=== PATIENT | male | born 1945 | race African-American/Black ===

== ENCOUNTER 2022-01-24 08:49 | Inpatient (IN) ==
[2022-01-24 09:28] LABS: Immature Granulocytes % 0.4 %; Immature Granulocytes Absolute 0.04 #; Lymphocytes # 0.9 10*3/uL (1.4-4.0); Lymphocytes % 8.2 % (21.2-54.2); Mean Corpuscular HGB Conc 33.3 GM/DL (32-36); Mean Corpuscular Volume 86.4 FL (87-102); Mean Platelet Volume 12.7 FL (9.6-12.0); Monocytes # 1.1 10*3/uL (0.11-0.8); Monocytes % 9.8 % (1.7-12.7); Neutrophils % 81.6 % (38.7-73.9); Platelet Count 175 T/CUMM (130-400); Red Blood Count 4.86 MC/CUMM (3.8-5.5); Red Cell Distribution Width 15.9 % (9.3-17.3); White Blood Count 11.2 T/CUMM (4-12)
[2022-01-24 09:43] LABS: Albumin 3.5 G/DL (3.4-5.0); Bilirubin,Total 1.8 MG/DL (0.20-1.00); Calcium 9.2 MG/DL (8.5-10.1); Potassium 4.1 MMOL/L (3.5-5.1); Total Protein 7.1 G/DL (6.4-8.2)
[2022-01-24] MEDS ORDERED: FUROSEMIDE 40 MG/4 ML VIAL IV STA (10:06)
[2022-01-24] MEDS ORDERED: ONDANSETRON 4 MG/2 ML VIAL IV STA (10:39)
[2022-01-24] MEDS ORDERED: MORPHINE 2 MG/1 ML SYRINGE IV STA (10:39)
[2022-01-24] MEDS ORDERED: MORPHINE 2 MG/1 ML SYRINGE ONE (10:40)
[2022-01-24] MEDS ORDERED: ASPIRIN 325 MG TABLET PO STA (13:33)
[2022-01-24] MEDS ORDERED: MORPHINE 2 MG/1 ML SYRINGE IV PRN (14:08)
[2022-01-24] MEDS ORDERED: ACETAMINOPHEN 325 MG TABLET PO PRN (14:08)
[2022-01-24] MEDS ORDERED: ONDANSETRON 4 MG/2 ML VIAL IV PRN (14:08)
[2022-01-24] MEDS ORDERED: cefTRIAXone 1,000 MG in SODIUM CHLORIDE 0.9% 100 ML IV STA (14:12)
[2022-01-24] MEDS: ENOXAPARIN 40 MG/0.4 ML SYRINGE SUBCUT SCH (14:59)
[2022-01-24 15:29] LABS: Amorphous Crystals,Urine Occasional /HPF (Few); Bilirubin,Urine Negative (Negative); Blood, Urine Large mg/dL (Negative); Glucose,Urine (UA) Negative (Negative); Ketones,Urine Negative (Negative); Mucus,Urine Occasional /LPF (Occasional); Nitrite,Urine Negative (Negative); Protein,Urine Negative (Negative); RBC,Urine 8 /HPF (0-4); Urine Appearance CLEAR (Clear); Urine Color Straw (Yellow); Urine Specific Gravity 1.005 (1.001-1.035); Urine Urobilinogen < 2.0 eU/dL (<2.0)
[2022-01-24] MEDS ORDERED: METOPROLOL TARTRATE 25 MG TABLET PO SCH (21:00)
[2022-01-24] MEDS: FUROSEMIDE 40 MG/4 ML VIAL IV SCH (22:56)
[2022-01-24] MEDS: carvediloL 3.125 MG TABLET PO SCH (22:59)
[2022-01-24] MEDS: TAMSULOSIN 0.4 MG CAPSULE PO SCH (22:59)
[2022-01-25 05:19] LABS: Hematocrit 36.6 VOL% (42.0-52.0); Hemoglobin 11.7 GM/DL (14.0-18.0); Immature Granulocytes % 0.6 %; Immature Granulocytes Absolute 0.04 #; Lymphocytes # 0.7 10*3/uL (1.4-4.0); Lymphocytes % 9.5 % (21.2-54.2); Mean Corpuscular Volume 89.3 FL (87-102); Mean Platelet Volume 12.7 FL (9.6-12.0); Monocytes # 0.7 10*3/uL (0.11-0.8); Monocytes % 10.5 % (1.7-12.7); Neutrophils % 79.4 % (38.7-73.9); Platelet Count 149 T/CUMM (130-400); Red Cell Distribution Width 15.9 % (9.3-17.3)
[2022-01-25 05:36] LABS: Albumin 2.3 G/DL (3.4-5.0); Bilirubin,Total 0.8 MG/DL (0.20-1.00); Calcium 8.2 MG/DL (8.5-10.1); Osmolality,Calculated 297.6 MOS/KG (273-304); Risk Ratio 3.5; Total Protein 5.2 G/DL (6.4-8.2); VLDL Cholesterol 11.8 MG/DL
[2022-01-25] MEDS ORDERED: ASPIRIN EC 325 MG TABLET PO SCH (09:00)
[2022-01-25] MEDS ORDERED: INFLUENZA VIRUS VACCINE 0.5 ML SYRINGE IM ONE (09:00)
[2022-01-25] MEDS ORDERED: DAPAGLIFLOZIN 5 MG TABLET PO SCH (09:00)
[2022-01-25] MEDS: ASPIRIN EC 81 MG TABLET PO SCH (09:34)
[2022-01-25] MEDS: carvediloL 3.125 MG TABLET PO SCH ×2 (09:34→22:26)
[2022-01-25] MEDS: FUROSEMIDE 40 MG/4 ML VIAL IV SCH ×2 (09:34→16:35)
[2022-01-25] MEDS: PANTOPRAZOLE 40 MG TABLET PO SCH (09:34)
[2022-01-25] MEDS ORDERED: cefTRIAXone 1,000 MG in SODIUM CHLORIDE 0.9% 100 ML IV SCH (14:00)
[2022-01-25] MEDS: ENOXAPARIN 40 MG/0.4 ML SYRINGE SUBCUT SCH (14:08)
[2022-01-25] MEDS ORDERED: BISACODYL 5 MG TABLET PO ONE (16:52)
[2022-01-25] MEDS: TAMSULOSIN 0.4 MG CAPSULE PO SCH (22:26)
[2022-01-26 06:16] LABS: Eosinophils % 0.4 % (0.00-10.9); Hematocrit 33.9 VOL% (42.0-52.0); Hemoglobin 11.1 GM/DL (14.0-18.0); Immature Granulocytes % 0.2 %; Immature Granulocytes Absolute 0.01 #; Lymphocytes # 1.1 10*3/uL (1.4-4.0); Mean Corpuscular HGB Conc 32.7 GM/DL (32-36); Mean Corpuscular Volume 87.8 FL (87-102); Mean Platelet Volume 12.7 FL (9.6-12.0); Monocytes # 0.6 10*3/uL (0.11-0.8); Monocytes % 10.3 % (1.7-12.7); Neutrophils % 70.1 % (38.7-73.9); Platelet Count 150 T/CUMM (130-400); Red Blood Count 3.86 MC/CUMM (3.8-5.5); Red Cell Distribution Width 15.9 % (9.3-17.3); White Blood Count 5.6 T/CUMM (4-12)
[2022-01-26 06:28] LABS: Osmolality,Calculated 289.1 MOS/KG (273-304); Potassium 3.4 MMOL/L (3.5-5.1)
[2022-01-26] MEDS ORDERED: POTASSIUM CHLORIDE 20 MEQ TABLET PO ONE (07:05)
[2022-01-26] MEDS: FUROSEMIDE 40 MG/4 ML VIAL IV SCH ×2 (08:49→16:09)
[2022-01-26] MEDS: DAPAGLIFLOZIN 10 MG TABLET PO SCH (08:49)
[2022-01-26] MEDS: carvediloL 3.125 MG TABLET PO SCH ×2 (08:49→21:38)
[2022-01-26] MEDS: PANTOPRAZOLE 40 MG TABLET PO SCH (08:49)
[2022-01-26] MEDS: ASPIRIN EC 81 MG TABLET PO SCH (08:50)
[2022-01-26] MEDS: POTASSIUM CHLORIDE 20 MEQ TABLET PO SCH (09:01)
[2022-01-26] MEDS ORDERED: MAGNESIUM SULF RIDER 2 GM/50 ML PREMIX IV PRN ×2 (09:52→10:33)
[2022-01-26] MEDS ORDERED: POTASSIUM CHLORIDE RIDER 10 MEQ/100 ML PREMIX IV PRN ×2 (09:52→10:33)
[2022-01-26] MEDS: ENOXAPARIN 40 MG/0.4 ML SYRINGE SUBCUT SCH (14:26)
[2022-01-26] MEDS: DOCUSATE SODIUM 100 MG CAPSULE PO SCH (21:38)
[2022-01-26] MEDS: ROSUVASTATIN 20 MG TABLET PO SCH (21:38)
[2022-01-26] MEDS: TAMSULOSIN 0.4 MG CAPSULE PO SCH (21:38)
[2022-01-27 04:27] LABS: Basophils % 0.2 % (0.0-0.8); Eosinophils % 0.6 % (0.00-10.9); Hemoglobin 12.4 GM/DL (14.0-18.0); Immature Granulocytes % 0.2 %; Immature Granulocytes Absolute 0.01 #; Lymphocytes # 1.3 10*3/uL (1.4-4.0); Lymphocytes % 23.8 % (21.2-54.2); Mean Corpuscular HGB Conc 32.6 GM/DL (32-36); Mean Corpuscular Volume 87.2 FL (87-102); Mean Platelet Volume 12.2 FL (9.6-12.0); Monocytes # 0.6 10*3/uL (0.11-0.8); Monocytes % 11.1 % (1.7-12.7); Neutrophils % 64.1 % (38.7-73.9); Platelet Count 167 T/CUMM (130-400); Red Blood Count 4.36 MC/CUMM (3.8-5.5); Red Cell Distribution Width 15.8 % (9.3-17.3); White Blood Count 5.4 T/CUMM (4-12)
[2022-01-27 04:48] LABS: Calcium 8.3 MG/DL (8.5-10.1); Osmolality,Calculated 284.5 MOS/KG (273-304); Potassium 3.4 MMOL/L (3.5-5.1)
[2022-01-27] MEDS: SODIUM CHLORIDE 0.9% 1,000 ML IV SCH ×3 (06:18→23:56)
[2022-01-27] MEDS ORDERED: DIAZEPAM 5 MG TABLET PO ONE ×2 (08:00→13:00)
[2022-01-27] MEDS ORDERED: diphenhydrAMINE CAP 50 MG CAPSULE PO ONE ×2 (08:00→13:00)
[2022-01-27] MEDS: DOCUSATE SODIUM 100 MG CAPSULE PO SCH ×2 (09:18→20:49)
[2022-01-27] MEDS: ASPIRIN EC 81 MG TABLET PO SCH (09:18)
[2022-01-27] MEDS: carvediloL 3.125 MG TABLET PO SCH ×2 (09:18→20:49)
[2022-01-27] MEDS: PANTOPRAZOLE 40 MG TABLET PO SCH (09:18)
[2022-01-27] MEDS: DAPAGLIFLOZIN 10 MG TABLET PO SCH (09:18)
[2022-01-27] MEDS: POTASSIUM CHLORIDE 20 MEQ TABLET PO SCH (09:19)
[2022-01-27] MEDS: FUROSEMIDE 40 MG/4 ML VIAL IV SCH ×2 (09:22→16:39)
[2022-01-27] MEDS ORDERED: HEPARIN/NACL 0.9% 2 UNITS/ML 2,000 UNIT/1,000 ML BAG IV ONE (12:00)
[2022-01-27] MEDS ORDERED: fentaNYL 100 MCG/2 ML VIAL ONE (12:08)
[2022-01-27] MEDS ORDERED: MIDAZOLAM 2 MG/2 ML VIAL ONE (12:08)
[2022-01-27] MEDS: POLYETHYLENE GLYCOL POWDER 17 GM PACK PO SCH (14:15)
[2022-01-27] MEDS: ROSUVASTATIN 20 MG TABLET PO SCH (20:49)
[2022-01-27] MEDS: TAMSULOSIN 0.4 MG CAPSULE PO SCH (20:49)
[2022-01-28 04:50] LABS: Basophils % 0.3 % (0.0-0.8); Eosinophils # 0.1 10*3/uL (0.0-0.87); Eosinophils % 0.8 % (0.00-10.9); Hematocrit 41.3 VOL% (42.0-52.0); Hemoglobin 13.4 GM/DL (14.0-18.0); Immature Granulocytes % 0.3 %; Immature Granulocytes Absolute 0.02 #; Lymphocytes # 1.1 10*3/uL (1.4-4.0); Lymphocytes % 18.1 % (21.2-54.2); Mean Corpuscular HGB Conc 32.4 GM/DL (32-36); Monocytes # 0.7 10*3/uL (0.11-0.8); Monocytes % 11.3 % (1.7-12.7); Neutrophils % 69.2 % (38.7-73.9); Platelet Count 173 T/CUMM (130-400); Red Blood Count 4.64 MC/CUMM (3.8-5.5)
[2022-01-28 05:09] LABS: Calcium 8.4 MG/DL (8.5-10.1)
[2022-01-28] MEDS: carvediloL 3.125 MG TABLET PO SCH (08:40)
[2022-01-28] MEDS: ASPIRIN EC 81 MG TABLET PO SCH (08:40)
[2022-01-28] MEDS: DOCUSATE SODIUM 100 MG CAPSULE PO SCH (08:40)
[2022-01-28] MEDS: PANTOPRAZOLE 40 MG TABLET PO SCH (08:40)
[2022-01-28] MEDS: DAPAGLIFLOZIN 10 MG TABLET PO SCH (08:40)
[2022-01-28] MEDS: POLYETHYLENE GLYCOL POWDER 17 GM PACK PO SCH (08:41)
[2022-01-28] MEDS: SODIUM CHLORIDE 0.9% 1,000 ML IV SCH (08:46)
[2022-01-28] MEDS ORDERED: SPIRONOLACTONE 25 MG TABLET PO SCH (09:00)
[2022-01-28] MEDS ORDERED: FUROSEMIDE 40 MG TABLET PO SCH (09:00)
[2022-01-28] MEDS ORDERED: SACUBITRIL/VALSARTAN 49-51 MG TABLET PO SCH (09:00)
[2022-01-28 12:23] VITALS: BP 104/69
== END 2022-01-28 13:56 | disposition home or self-care (01) | DRG 286 ==
LOC: N.ED 08:49 → SUATTDRO 14:52 → N.EDINP 14:52 → N.TELEN 18:37
PROVIDERS: ADMIT Internal Medicine; ATTEND Emergency Medicine